=== PATIENT | female | born 1970 | race Hispanic/Latino ===

== ENCOUNTER 2017-05-18 06:52 | Day surgery (SDC) | payer SELFPAY ==
[2017-05-13 11:40] VITALS: RESP 18
[2017-05-13 11:41] VITALS: BMI 22.1
[2017-05-18] MEDS ORDERED: Lactated Ringer's 1,000 ML IV ONE ×2 (07:55→10:15)
[2017-05-18] MEDS ORDERED: Silver Nitrate Topical - Stick ONE (10:18)
[2017-05-18] MEDS ORDERED: Sodium Chloride 0.9% 500 ML IV ONE (10:30)
[2017-05-18] MEDS ORDERED: HYDROmorphone 0.5 mg/0.5 ml ISec IVP PRN (10:34)
[2017-05-18 10:42] VITALS: O2SAT 100
[2017-05-18 14:32] VITALS: BP 128/76; PULSE 70; TEMP 98.1
--- NOTE | 2017-05-25 23:19 | OP ---
PROCEDURE DATE: 05/18/2017 PREOPERATIVE DIAGNOSIS: Abnormal uterine bleeding with irregular menstrual bleeding. POSTOPERATIVE DIAGNOSES: Abnormal uterine bleeding with irregular menstrual bleeding and small uterine fibroid noted. PROCEDURE: Hysteroscopy and dilatation and curettage. ESTIMATED BLOOD LOSS: Minimal. COMPLICATIONS: None. ANESTHESIA: General. SPECIMEN: Endometrial curettings. FLUID DEFICIT: 65 mL. FINDINGS: A small submucosal uterine fibroid was noted, bilateral ostia were visualized and appeared grossly normal. Otherwise, normal endometrium was seen. INDICATIONS FOR PROCEDURE: A 47-year-old female with abnormal uterine bleeding presented for hysteroscopy and D and C due to failed attempt at endometrial sampling in the office x2. The risks, benefits and alternatives to the procedure were discussed with the patient at length and informed consent was obtained. DESCRIPTION OF PROCEDURE: The patient was taken to the operating room and given general anesthesia without difficulty. She was then prepped and draped in lithotomy position using Coy stirrups. Exam under anesthesia revealed a normal-sized anteverted uterus. No adnexal masses were palpated. A weighted speculum was placed in the vagina and the anterior lobe of cervix was grasped with a single-tooth tenaculum. The cervix was gently dilated to ensure reduction of the diagnostic hysteroscope. The hysteroscope was then introduced into the uterine fundus and both ostia were easily visualized. In the cavity, an approximately 1.5-cm fibroid was seen in the anterior uterine wall. Otherwise, normal endometrium was visualized. Following this, the hysteroscope was removed. A sharp curettage was performed and tissue was obtained. All instruments were then removed from the vagina. Hemostasis was achieved. The patient was awakened and taken to recovery room in stable condition and informed to continue proper rest and return to the office in 2 weeks for evaluation and postprocedure followup. Rae Page MD
== END 2017-05-18 13:45 | disposition home or self-care (01) ==
LOC: H.OPSURG 06:52
PROVIDERS: ATTEND Obstetrics & Gynecology
DX: N83.201 Unspecified ovarian cyst, right side (principal); N92.6 Irregular menstruation, unspecified; I10 Essential (primary) hypertension
CPT/HCPCS: 58558; 88305; J0330; J1100; J2001; J2250; J2405; J2704; J3010; J7030; J7040; J7120

== ENCOUNTER 2018-10-10 08:42 | Emergency (ER) | payer SELFPAY ==
[2018-10-10 08:45] VITALS: BMI 21.9
--- NOTE | 2018-10-10 09:23 | ED PDOC ---
HPI: Skin/Bite Injury Time Seen by Provider: 10/10/18 09:09 Chief Complaint (Nursing): Abnormal Skin Integrity Chief Complaint (Provider): Rash History Per: Patient History/Exam Limitations: no limitations Additional Complaint(s): Pt reports rash to R back X 1 week, painful, no fever. Also has bumps on nose she noticed yesterday. Past Medical History Reviewed: Nursing Documentation, Vital Signs Vital Signs: Last Vital Signs Temp 98.5 F 10/10/18 08:45 Pulse 71 10/10/18 08:45 Resp 17 10/10/18 08:45 BP 172/100 H 10/10/18 08:45 Pulse Ox 98 10/10/18 08:45 Primary Care Provider: Non [facility] Provider, - Medical History PMH: HTN Denies: Chronic Kidney Disease - Family History Family History: States: Unknown Family Hx - Living Arrangements Living Arrangements: With Family - Social History Current smoker - smoking cessation education provided: No Alcohol: None - Home Medications Home Medications: Ambulatory Orders Medication Instructions Recorded Ibuprofen [Motrin] 600 mg PO Q6 PRN 05/18/17 Losartan Potassium 25 mg PO DAILY 05/18/17 Acyclovir [Zovirax] 400 mg PO TID #29 tab 10/10/18 - Allergies Allergies/Adverse Reactions: Allergies Allergy/AdvReac Type Severity Reaction Status Date / Time No Known Allergies Allergy Verified 05/18/17 07:21 Review of Systems Constitutional: Negative for: Fever, Chills Eyes: Negative for: Pain, Vision Change, Redness ENT: Negative for: Ear Pain, Ear Discharge, Nose Pain Skin: Positive for: Rash, Lesions Neurological: Negative for: Headache Physical Exam - Reviewed Nursing Documentation Reviewed: Yes Vital Signs Reviewed: Yes - Physical Exam Appears: Positive for: Well, No Acute Distress Head Exam: Positive for: ATRAUMATIC Skin: Positive for: Normal Color, Warm Eye Exam: Positive for: Normal appearance, EOMI, PERRL ENT: Positive for: Pharynx Is (Clear), TM Is/Are (WNL, no lesions), Other (4 pinpoint erythematous lesions tip of nose, no vesicles, no TTP, no drainage). Negative for: Nasal Congestion Back: Positive for: Other (Vesicular lesions along T5 dermatome, no surrounding induration, no TTP, no discharge, no bleeding). Negative for: Normal Inspection Neurological/Psych: Positive for: Awake, Alert, Oriented - ECG O2 Sat by Pulse Oximetry: 98 Medical Decision Making Medical Decision Makin yo with shingles. - Acyclovir Disposition - Clinical Impression Clinical Impression: Shingles - Disposition Referrals: [facility] [Outside] [facility] [place] [Outside] Disposition: Routine/Home Disposition Time: 10:46 Condition: STABLE Prescriptions: Acyclovir [Zovirax] 400 mg PO TID #29 tab Instructions: Shingles Forms: [facility] ([place]er)
[2018-10-10 11:05] VITALS: BP 146/78; PULSE 78; RESP 20; TEMP 97.6; O2SAT 98
== END 2018-10-10 11:05 | disposition home or self-care (01) ==
LOC: H.ER 08:42
DX: B02.9 Zoster without complications (principal); I10 Essential (primary) hypertension